=== PATIENT | male | born 1970 | race Caucasian/White ===

== ENCOUNTER 2017-02-18 09:09 | Outpatient (RCR) | payer OTHER ==
[~2017-02-18 09:09] MED LIST: MULT-35 PO
[2017-02-18 10:28] LABS: BASOPHILS % (AUTO) 0 % (0-10); EOSINOPHILS # (AUTO) 0.2 10^3/uL (0.0-0.3); EOSINOPHILS % (AUTO) 3 % (0-10); HEMATOCRIT 42 % (40-54); HEMOGLOBIN 14.4 G/DL (13.3-17.7); LYMPHOCYTES # (AUTO) 1.6 X 10^3 (1.0-4.0); LYMPHOCYTES % (AUTO) 23 % (12-44); MEAN CORPUSCULAR HEMOGLOBIN 30 PG (25-34); MEAN CORPUSCULAR HGB CONC 34 G/DL (32-36); MEAN CORPUSCULAR VOLUME 87 FL (80-99); MEAN PLATELET VOLUME 9.7 FL (7.4-10.4); MONOCYTES # (AUTO) 0.4 X 10^3 (0.0-1.0); MONOCYTES % (AUTO) 6 % (0-12); NEUTROPHILS # (AUTO) 4.6 X 10^3 (1.8-7.8); NEUTROPHILS % (AUTO) 68 % (42-75); PLATELET COUNT 237 10^3/uL (130-400); RED BLOOD COUNT 4.88 10^6/uL (4.35-5.85); RED CELL DISTRIBUTION WIDTH 13.7 % (10.0-14.5); WHITE BLOOD COUNT 6.8 10^3/uL (4.3-11.0)
[2017-02-18 10:52] LABS: ALANINE AMINOTRANSFERASE 30 U/L (0-55); ALBUMIN 4.1 GM/DL (3.2-4.5); ALKALINE PHOSPHATASE 57 U/L (40-136); BILIRUBIN,TOTAL 0.9 MG/DL (0.1-1.0); BUN/CREATININE RATIO 16; CALCIUM 9.4 MG/DL (8.5-10.1); CARBON DIOXIDE 25 MMOL/L (21-32); CHLORIDE 108 MMOL/L (98-107); CREATININE SERUM 1.13 MG/DL (0.60-1.30); GFR ESTIMATED > 60; GLUCOSE 107 MG/DL (70-105); POTASSIUM 3.8 MMOL/L (3.6-5.0); SODIUM 140 MMOL/L (135-145)
== END 2017-05-19 | disposition home or self-care (01) ==
LOC: ONC 09:09
PROVIDERS: ATTEND Internal Medicine Hematology & Oncology
DX: Z08 Encounter for follow-up examination after completed treatment for malignant neoplasm (principal); Z85.831 Personal history of malignant neoplasm of soft tissue; I25.10 Atherosclerotic heart disease of native coronary artery without angina pectoris; Z95.1 Presence of aortocoronary bypass graft; Z92.21 Personal history of antineoplastic chemotherapy; Z79.899 Other long term (current) drug therapy
CPT/HCPCS: 36415; 80053; 82105; 83615; 84702; 85025; 99214

== ENCOUNTER 2022-11-06 12:35 | Emergency (ER) | payer SELFPAY ==
[~2022-11-06] VITALS: Ht 182.9 cm; Wt 105.0 kg
--- NOTE | 2022-11-06 12:46 | ED Lower Extremity ---
General Chief Complaint: Lower Extremity Stated Complaint: R FOOT INJURY History of Present Illness Date Seen by Provider: Nov 06, 2022 Time Seen by Provider: 12:44 Initial Comments 1-year-old male is here with complaints of right foot pain after he caught his foot in between the cracks of a pallet and fell forward twisting his foot. Denies head strike or LOC. Patient's right foot is swollen and he is unable to bear weight on it due to the pain on the top of his foot. Allergies and Home Medications Allergies Coded Allergies: No Known Drug Allergies (Unverified , 03/13/15) Patient Home Medication List Home Medication List Reviewed: Yes Multivitamin (Daily Multiple Vitamin) 1 Each Tablet, 1 TAB PO DAILY, (Reported) Entered as Reported by: ANA ROSENTHAL on 03/13/15 1376 Review of Systems Constitutional: no symptoms reported EENTM: no symptoms reported Respiratory: no symptoms reported Cardiovascular: no symptoms reported Gastrointestinal: no symptoms reported Genitourinary: no symptoms reported Musculoskeletal: joint pain, joint swelling Skin: no symptoms reported Psychiatric/Neurological: No Symptoms Reported Past Zcxlkvq-Kzjzxi-Xqehjp Hx Past Medical History Reproductive Disorders: No Loss of Vision: Denies Hearing Impairment: Denies Family Medical History Myocardial infarction MATERNAL GRANDMOTHER, Onset:89 Physical Exam Vital Signs Vital Signs - First Documented 11/06/22 12:49 Temp 35.6 Pulse 73 Resp 16 B/P (MAP) 130/58 (82) Pulse Ox 97 O2 Delivery Room Air Capillary Refill : Height, Weight, BMI Height: 6'0.00" Weight: 248lbs. 8.0oz. 112.781089nu; BMI Method: General Appearance: WD/WN, no apparent distress HEENT: PERRL/EOMI Ankles: right ankle non-tender, right ankle normal inspection, right ankle normal range of motion, right ankle no evidence of injury Feet: right foot normal range of motion, right foot ecchymosis (On the dorsum of the foot), right foot pain, right foot soft tissue tenderness, right foot swelling (Dorsum of the foot) Neurologic/Tendon: normal sensation, normal tendon functions Neurologic/Psychiatric: no motor/sensory deficits, alert, normal mood/affect, oriented x 3 Skin: ecchymosis Progress/Results/Core Measures Results/Orders My Orders Orders - MANUELA ROBLEDO MD Foot 3 View Right (7/7/23 12:46) Vital Signs/I&O 11/06/22 12:49 Temp 35.6 Pulse 73 Resp 16 B/P (MAP) 130/58 (82) Pulse Ox 97 O2 Delivery Room Air Progress Progress Note : Progress Note 1. RIGHT 2nd METATARSAL FRACTURE: - XR RIGHT FOOT: Non-displaced comminuted fracture at the base of the second metatarsal - Ice application and elevation of foot advised - Crutches/boot given - Advised Ibuprofen for pain - Follow up with Podiatry clinic. Call for appointment. DR. NANCY ALFONSO [address] [place] [address] Diagnostic Imaging Diagonstic Imaging: Xray Plain Films/CT/US/NM/MRI: other Comments [facility], [place] NAME: SHIRLEY MITTAL [facility] REC#: [id number] PT STATUS: REG ER : 1970 PHYSICIAN: MANUELA ROBLEDO MD ADMIT DATE: 11/06/22/ER FS Draft Date of Exam:11/06/22 FOOT 3 VIEW RIGHT INDICATION: Twisted right foot, complaining of pain. TIME OF EXAM: 01:01 p.m. TECHNIQUE: Three views of the right foot were obtained. FINDINGS: There is a fracture involving the base of the second metatarsal without evidence of significant displacement. Remaining metatarsals are intact. The phalanges are intact. Midfoot and hindfoot are unremarkable. There is dorsal soft tissue swelling. IMPRESSION: Nondisplaced comminuted fracture at the base of the second metatarsal. Dictated on workstation # [id number] Dict: 11/06/22 1346 Trans: 11/06/22 1354 [id number] [id number] Interpreted by: TIFFANY HERNANDEZ MD Electronically signed by: Departure Impression Primary Impression: Fracture of second metatarsal bone of right foot Qualified Codes: S92.324A - Nondisplaced fracture of second metatarsal bone, right foot, initial encounter for closed fracture Disposition: HOME, SELF-CARE Condition: Stable Departure-Patient Inst. Referrals: ZORAN TURCIOS MD (PCP) Primary Care Physician PODIATRY DR BARRY Patient Instructions: Foot Fracture ED, How to Use Crutches, Walking Boot Add. Discharge Instructions: - Ice application and elevation of foot advised - Crutches/ boot given - Advised Ibuprofen for pain - Follow up with Podiatry clinic. Call for appointment. [place] [address] - Other option for podiatry is Dr Barry's office All discharge instructions reviewed with patient and/or family. Voiced understanding. MANUELA ROBLEDO MD Nov 06, 2022 12:46
[2022-11-06 12:49] VITALS: BP 130/58
--- NOTE | 2022-11-06 13:55 | Diagnostic Imaging Report ---
INDICATION: Twisted right foot, complaining of pain. TIME OF EXAM: 01:01 p.m. TECHNIQUE: Three views of the right foot were obtained. FINDINGS: There is a fracture involving the base of the second metatarsal without evidence of significant displacement. Remaining metatarsals are intact. The phalanges are intact. Midfoot and hindfoot are unremarkable. There is dorsal soft tissue swelling. IMPRESSION: Nondisplaced comminuted fracture at the base of the second metatarsal. Dictated by: Dictated on workstation # [id number]
== END 2022-11-06 15:00 | disposition home or self-care (01) ==
LOC: EDUNIT# 12:35 → ER FS 12:37
DX: S92.324A Nondisplaced fracture of second metatarsal bone, right foot, initial encounter for closed fracture (principal); W18.30XA Fall on same level, unspecified, initial encounter; X50.1XXA Overexertion from prolonged static or awkward postures, initial encounter
CPT/HCPCS: 73630